=== PATIENT | female | born 1940 | race Caucasian/White ===

== ENCOUNTER 2017-06-08 11:31 | Inpatient (IN) | payer OTHER ==
[~2017-06-08] VITALS: Ht 144.8 cm; Wt 47.0 kg
[~2017-06-08 11:31] MED LIST: ACT30 PO; CALCIUM600 M3 PO; CARVEDILOL25 M1 PO; COUMADIN4 MG PO; DEC150 PO; ESTRACE0.5 MG PO; ESTRADIOL0.5 MG PO; GABAPENTIN300 M3 PO; GLIPIZIDE10 MG PO; GLUCOTROL10 MG PO; LASIX20 MG PO; LEVOTHYROXIN0.075 M2 PO; LEVOTHYROXINE0.1 M2 PO; LOVASTATIN40 MG PO; METFORMIN HCL1000 MG PO; METFORMIN1000 M1 PO; MIRTAZAPINE15 M2 PO; NEURONTIN100 MG PO; PANTOPRAZOLE SO40 M1 PO; PIOGLITAZONE45 M1 PO; SOD1 PO; SODIUM CHLORIDE PO; TRE400 PO; TYLENOL EXTRA500 M2 PO; WARFARIN4 M1 PO
[2017-06-08] MEDS ORDERED: B-12 KIT1000 MCG/1 IJ (11:51)
[2017-06-08] MEDS ORDERED: NEU300 PO (11:52)
[2017-06-08] MEDS ORDERED: MIRTAZAPINE15 M2 PO (11:52)
[2017-06-08] MEDS ORDERED: LANTUS SOLOS100 U/M1 SQ (11:53)
[2017-06-08] MEDS ORDERED: IRON90 MG PO (11:54)
[2017-06-08] MEDS ORDERED: PHOSLO667 MG PO (11:54)
[2017-06-08 12:21] LABS: BASOPHIL % 0.5 % (0-2); PLATELET COUNT 279 x10^3mcL (130-400)
[2017-06-08 12:25] LABS: RED CELL DISTRIBUTION WIDTH 15.1 % (11.5-14.5)
[2017-06-08] MEDS ORDERED: CARVEDILOL12.5 M1 PO (12:36)
[2017-06-08] MEDS ORDERED: COUMADIN2 MG PO (12:36)
[2017-06-08 12:37] LABS: CALCIUM 8.2 mg/dL (8.5-10.1); CARBON DIOXIDE 24.8 mmol/L (21-32); CHLORIDE SERUM 100 mmol/L (98-107); CREATININE SERUM 0.9 mg/dL (0.6-1.0); GLUCOSE SERUM 270 mg/dL (74-106); SODIUM SERUM 131 mmol/L (136-145)
[2017-06-08 12:42] LABS: ALBUMIN 3.2 g/dL (3.4-5.0); ALKALINE PHOSPHATASE 209 U/L (46-116); ALT/SGPT 44 U/L (14-59); AMYLASE 59 U/L (25-115); AST/SGOT 48 U/L (15-37); BILIRUBIN TOTAL 0.21 mg/dL (0.20-1.00); CHOLESTEROL 151 mg/dL (<200); HDL CHOLESTEROL 42 mg/dL (40-60); LIPASE 77 IU/L (73-393); MAGNESIUM 1.7 mg/dL (1.8-2.4); TOTAL PROTEIN, SERUM 6.8 g/dL (6.4-8.2)
[2017-06-08 13:15] VITALS: BP 127/76
[2017-06-09 04:09] LABS: AMPHETAMINE QUAL UR NONE DETECTED (NEG <=1000)
[2017-06-09 04:20] LABS: microscopic required? YES; urine erythrocyte 3+ (NEGATIVE)
[2017-06-09 06:08] VITALS: BP 141/76
[2017-06-09 07:42] LABS: BASOPHIL % 0.4 % (0-2); PLATELET COUNT 272 x10^3mcL (130-400)
[2017-06-09 07:43] LABS: RED CELL DISTRIBUTION WIDTH 14.7 % (11.5-14.5)
[2017-06-09 08:01] LABS: CALCIUM 8.3 mg/dL (8.5-10.1); CARBON DIOXIDE 23.6 mmol/L (21-32); CHLORIDE SERUM 102 mmol/L (98-107); CREATININE SERUM 0.8 mg/dL (0.6-1.0); GLUCOSE SERUM 214 mg/dL (74-106); MAGNESIUM 1.7 mg/dL (1.8-2.4); PHOSPHOROUS 3.1 mg/dL (2.5-4.9); POTASSIUM SERUM 4.6 mmol/L (3.5-5.1); SODIUM SERUM 133 mmol/L (136-145)
[2017-06-09 09:20] VITALS: BP 122/72
[2017-06-09 14:27] LABS: FREE T4 1.35 ng/dL (0.76-1.46); FREE THYROXINE INDEX 3.9 ug/dL (1.4-4.5); T4(THYROXINE) 10.8 ug/dL (4.7-13.3)
[2017-06-09 16:09] LABS: T3 TOTAL 0.81 ng/mL
[2017-06-09 17:29] VITALS: BP 83/62
[2017-06-09 21:50] VITALS: BP 104/66
[2017-06-10] VITALS (8 sets, daily range): BP systolic 97–141; BP diastolic 50–79
[2017-06-10 07:15] LABS: BASOPHIL % 0.5 % (0-2); PLATELET COUNT 249 x10^3mcL (130-400)
[2017-06-10 07:23] LABS: RED CELL DISTRIBUTION WIDTH 14.9 % (11.5-14.5)
[2017-06-10 08:00] LABS: CALCIUM 8.3 mg/dL (8.5-10.1); CARBON DIOXIDE 24.4 mmol/L (21-32); CHLORIDE SERUM 103 mmol/L (98-107); CREATININE SERUM 0.7 mg/dL (0.6-1.0); GLUCOSE SERUM 216 mg/dL (74-106); MAGNESIUM 2.2 mg/dL (1.8-2.4); PHOSPHOROUS 2.8 mg/dL (2.5-4.9); SODIUM SERUM 131 mmol/L (136-145)
[2017-06-11 05:36] VITALS: BP 132/61
[2017-06-11 09:30] VITALS: BP 156/70
[2017-06-11 16:50] VITALS: BP 163/84
[2017-06-11 21:51] VITALS: BP 144/78
[2017-06-12 05:17] VITALS: BP 125/77
[2017-06-12 06:00] LABS: BASOPHIL % 0.6 % (0-2); PLATELET COUNT 263 x10^3mcL (130-400)
[2017-06-12 06:14] LABS: CALCIUM 8.6 mg/dL (8.5-10.1); CARBON DIOXIDE 23.7 mmol/L (21-32); CHLORIDE SERUM 102 mmol/L (98-107); CREATININE SERUM 0.8 mg/dL (0.6-1.0); GLUCOSE SERUM 321 mg/dL (74-106); MAGNESIUM 1.7 mg/dL (1.8-2.4); PHOSPHOROUS 2.8 mg/dL (2.5-4.9); POTASSIUM SERUM 5.1 mmol/L (3.5-5.1); SODIUM SERUM 133 mmol/L (136-145)
[2017-06-12 06:26] VITALS: BP 129/70
[2017-06-12 06:36] LABS: RED CELL DISTRIBUTION WIDTH 14.8 % (11.5-14.5)
[2017-06-12 07:32] VITALS: BP 135/81
[2017-06-12 10:00] VITALS: BP 122/76
[2017-06-12] MEDS ORDERED: CARVEDILOL12.5 M1 PO (16:53)
[2017-06-12] MEDS ORDERED: COUMADIN1 MG PO (16:57)
[2017-06-12 17:22] VITALS: BP 122/76
== END 2017-06-12 19:00 | disposition home or self-care (01) | DRG 291 ==
LOC: ED 11:31 → DU 12:21 → MU 06-10 16:20 → DU 06-10 16:56
PROVIDERS: Emergency Medicine; Family Medicine; ADMIT Family Medicine
DX: I50.43 Acute on chronic combined systolic (congestive) and diastolic (congestive) heart failure (principal); N17.0 Acute kidney failure with tubular necrosis; I47.2 Ventricular tachycardia; E44.0 Moderate protein-calorie malnutrition; E87.1 Hypo-osmolality and hyponatremia; I48.2 Chronic atrial fibrillation; M06.9 Rheumatoid arthritis, unspecified; Z95.0 Presence of cardiac pacemaker; Z79.01 Long term (current) use of anticoagulants; E11.51 Type 2 diabetes mellitus with diabetic peripheral angiopathy without gangrene; E11.65 Type 2 diabetes mellitus with hyperglycemia; E02 Subclinical iodine-deficiency hypothyroidism; E83.42 Hypomagnesemia; F32.9 Major depressive disorder, single episode, unspecified; D64.9 Anemia, unspecified; M62.50 Muscle wasting and atrophy, not elsewhere classified, unspecified site; M81.0 Age-related osteoporosis without current pathological fracture; Z68.22 Body mass index [BMI] 22.0-22.9, adult; Z79.84 Long term (current) use of oral hypoglycemic drugs
CPT/HCPCS: 82962; 83880; 84439; A9500; J1940; J2785; J3475; J3490; J7040; J7042; Q0092

== ENCOUNTER 2018-07-05 06:09 | Inpatient (IN) | payer OTHER ==
[~2018-07-05] VITALS: Ht 142.2 cm; Wt 46.3 kg
[~2018-07-05 06:09] MED LIST changes: +B-12 KIT1000 MCG/1 IJ; +CARVEDILOL12.5 M1 PO; +COUMADIN1 MG PO; +COUMADIN2 MG PO; +IRON90 MG PO; +LANTUS SOLOS100 U/M1 SQ; +NEU300 PO; +PHOSLO667 MG PO
[2018-07-05 06:18] VITALS: Ht 142.2 cm; Wt 46.3 kg
[2018-07-05 06:47] LABS: PLATELET COUNT 204 x10^3mcL (130-400)
[2018-07-05 07:06] LABS: CALCIUM 8.2 mg/dL (8.5-10.1); CARBON DIOXIDE 26.1 mmol/L (21-32); CHLORIDE SERUM 106 mmol/L (98-107); CREATININE SERUM 0.8 mg/dL (0.6-1.0); GLUCOSE SERUM 142 mg/dL (74-106); POTASSIUM SERUM 3.8 mmol/L (3.5-5.1); SODIUM SERUM 140 mmol/L (136-145)
[2018-07-05 07:10] LABS: ALKALINE PHOSPHATASE 118 U/L (46-116); ALT/SGPT 41 U/L (14-59); AST/SGOT 24 U/L (15-37); BILIRUBIN TOTAL 0.3 mg/dL (0.20-1.00); HDL CHOLESTEROL 39 mg/dL (40-60); MAGNESIUM 1.8 mg/dL (1.8-2.4); RED CELL DISTRIBUTION WIDTH 14.7 % (11.5-14.5); TOTAL PROTEIN, SERUM 6.4 g/dL (6.4-8.2)
[2018-07-05 07:11] LABS: ALBUMIN 3.2 g/dL (3.4-5.0); CHOLESTEROL 99 mg/dL (<200)
[2018-07-05 07:15] LABS: microscopic required? NO
[2018-07-05 07:43] LABS: urine erythrocyte NEGATIVE (NEGATIVE)
[2018-07-05] MEDS ORDERED: LANTUS SOLOS100 U/M1 SC (09:40)
[2018-07-05] MEDS ORDERED: ESTROVEN MAXIMU (09:40)
[2018-07-05] MEDS ORDERED: LIPI20 PO (09:41)
[2018-07-05 10:57] VITALS: BP 152/73
[2018-07-05 13:23] VITALS: BP 118/66
[2018-07-05 17:24] VITALS: BP 132/68
[2018-07-05 20:45] VITALS: BP 152/68
[2018-07-06 05:28] VITALS: BP 135/66
[2018-07-06 08:04] VITALS: BP 108/72
[2018-07-06 11:24] VITALS: BP 108/72
== END 2018-07-06 12:20 | disposition home or self-care (01) | DRG 149 ==
LOC: ED 06:09 → DU 09:05
PROVIDERS: Emergency Medicine
DX: H81.10 Benign paroxysmal vertigo, unspecified ear (principal); I48.2 Chronic atrial fibrillation; E11.9 Type 2 diabetes mellitus without complications; E86.0 Dehydration; I48.0 Paroxysmal atrial fibrillation; E03.9 Hypothyroidism, unspecified; M06.9 Rheumatoid arthritis, unspecified; Z95.0 Presence of cardiac pacemaker; Z79.01 Long term (current) use of anticoagulants; Z86.73 Personal history of transient ischemic attack (TIA), and cerebral infarction without residual deficits; Z79.84 Long term (current) use of oral hypoglycemic drugs
CPT/HCPCS: 82962; J1815; J8597; Q0092

== ENCOUNTER 2019-11-08 16:35 | Observation (INO) | payer OTHER ==
[~2019-11-08] VITALS: Ht 144.8 cm; Wt 45.4 kg
[~2019-11-08 16:35] MED LIST changes: +ESTROVEN MAXIMU; +LANTUS SOLOS100 U/M1 SC; +LIPI20 PO
[2019-11-08 16:52] VITALS: Ht 144.8 cm; Wt 45.4 kg
--- NOTE | 2019-11-08 17:30 | NUR ---
PT PRESENTS VIA POV FOR FURTHER EVAL OF DIZZINESS AND NOW NOTED HIGH AT 458; PT HAS PMHX OF PACEMAKER,AFIB,CVA; PT HAS GOOD SPEECH AND IS A/O X 3, ANSWERS QUESTIONS APPROPRIATELY; DENIES ANY CHANGE IN MENTATION; PT SEEN BY PROVIDER; ORDERS REC'D
[2019-11-08 17:44] LABS: BASOPHIL % 0.2 % (0-2); PLATELET COUNT 212 x10^3mcL (130-400); RED CELL DISTRIBUTION WIDTH 15.1 % (11.5-14.5)
--- NOTE | 2019-11-08 18:35 | NUR ---
PT RESTING WELL, NO ADR FROM MEDS GIVEN; REMAINS WAITING ON URINE FOR FURTHER TESTING; NO C/O INCREASE IN DIZZINESS OR N/V; YUSEF FLUIDS WELL
--- NOTE | 2019-11-08 19:20 | NUR ---
PT IS AWAKE, AAOX4, RESP E/U, NAD NOTED, SPEAKING IN FULL CLEAR SENTENCES.
--- NOTE | 2019-11-08 19:25 | NUR ---
PT ASSISTED TO BEDSIDE COMMODE WITHOUT INCIDENT.
[2019-11-08 19:52] LABS: microscopic required? YES; urine erythrocyte 2+ (NEGATIVE)
[2019-11-08 19:53] LABS: CARBON DIOXIDE 23.7 mmol/L (21-32); CHLORIDE SERUM 100 mmol/L (98-107); CREATININE SERUM 1.3 mg/dL (0.6-1.0); GLUCOSE SERUM 449 mg/dL (74-106); POTASSIUM SERUM 4.2 mmol/L (3.5-5.1); SODIUM SERUM 137 mmol/L (136-145)
[2019-11-08 20:01] LABS: ALKALINE PHOSPHATASE 122 U/L (46-116); ALT/SGPT 45 U/L (14-59); AST/SGOT 46 U/L (15-37); BILIRUBIN TOTAL 0.38 mg/dL (0.20-1.00); TOTAL PROTEIN, SERUM 7.6 g/dL (6.4-8.2)
[2019-11-08] MEDS ORDERED: CARVEDILOL ER40 MG PO (20:05)
[2019-11-08] MEDS ORDERED: COU2 PO (20:06)
[2019-11-08] MEDS ORDERED: ATORVASTATIN CA20 M1 PO (20:06)
[2019-11-08] MEDS ORDERED: LASIX20 MG PO (20:06)
[2019-11-08] MEDS ORDERED: LANTUS SOLOS100 U/M1 SC (20:06)
[2019-11-08] MEDS ORDERED: TIROSINT25 MC1 PO (20:07)
[2019-11-08] MEDS ORDERED: HORIZANT300 MG PO (20:07)
[2019-11-08] MEDS ORDERED: METFORMIN500 M1 PO (20:07)
[2019-11-08] MEDS ORDERED: MIRTAZAPINE7.5 M1 PO (20:08)
[2019-11-08] MEDS ORDERED: SOD1 PO (20:08)
--- NOTE | 2019-11-08 20:24 | NUR ---
PT STATES "I'M NOT ALLERGIC TO LASIX, I TAKE LASIX AT HOME." PT REQUESTING FOR LASIX TO BE REMOVED FROM HER ALLERGIES.
--- NOTE | 2019-11-08 20:32 | NUR ---
PT MEDICATED PER MD ORDER. PT VERBALIZED UNDERSTANDING OF MEDICATION PRIOR TO ADMINISTRATION. PT IS AWAKE, AAOX4, RESP E/U, NAD NOTED, CALL LIGHTIN REACH.
--- NOTE | 2019-11-08 21:06 | NUR ---
ATTEMPTED TO CALL REPORT TO MATTHEW, TOLD TO "HOLD ON". WILL TRY AGAIN.
--- NOTE | 2019-11-08 21:11 | NUR ---
REPORT CALLED TO UBNNY CASTRO TO ASSUME CARE FOR PT.
[2019-11-08 22:02] VITALS: BP 148/62
--- NOTE | 2019-11-08 22:13 | NUR ---
RECEIVED PT FROM ER, PT ADMIT FOR DM OUT OF CONTROLLED, CHF, PT IS A/O X4, VERBAL RESPONSIVE. LUNG SOUND CLEAR YVONNE, NO COUGH, NO SOB. NO FACIAL DROOP NOTED. PT IS ON TELE 8, 100% PACED. THERE IS PACE MAKER AT LEFT UPPER CHEST, DENY ANY CHEST PAIN OR DISCOMFORT, BOWEL SOUND PRESENT ALL 4 QUADRANTS, NO DISTENTION, NO TENDER. PEDAL PULSE PRESENT BOTH FEET, NO EDEMA, PT IS ABLE TO AMBULATE WITH ASSIST, ALL 4 EXTREMITIS ARE EQUAL STRAIGHT. NO DEFICIT NOTED. IV AT LEFT AC, NO LEAKING, NO INFILTRATION. ALL ADLS ASSIST, ALL NEED MET, CALL LIGHT IN REACH, WILL CONTINUE TO MONITOR.
--- NOTE | 2019-11-08 23:00 | NUR ---
PHONED DR BRANDON MELGAR CALL EXCHANGE TO OBTAIN ORDERS. WILL WAIT FOR CALL BACK.
--- NOTE | 2019-11-08 23:20 | NUR ---
SPOKE TO DR BRANDON MELGAR IN REGARDS TO ADMISSION ORDERS. RECEIVED ORDERS TO PUT PATIENT ON LOW SLIDING SCALE WITH REGULAR INSULIN COVERAGE. ALSO RECEIVED ORDERS TO RESUME HER HOME MEDICATIONS, ONLY ADJUSTED WAS THE ADDITION OF LASIX 20MG IVP QDAILY. INQUIRED IN REGARDS TO CODE STATUS, PER DR. BRANDON MELGAR, HE HAS NOT SPOKEN TO THE PATIENT IN REGARDS TO THE CODE STATUS AND WILL LEAVE IT TO DR GUZMAN FOR ENTERING. ALL QUESTIONS AND CONCERNS ADDRESSED, CALL LIGHT WITHIN REACH, BED IN LOWEST POSITION, WILL CONTINUE TO MONITOR.
--- NOTE | 2019-11-09 05:05 | NUR ---
PT RESTED IN INTERVALS DURING SHIFT, NO ACUTE CHNAGES OCCURRING OVERNIGHT. PT REMAINS AOX4, DENIES HENAO/DIZZINESS. PT REPORTS FEELING MUCH BETTER THAN BEFORE, STATES SHE KNOWS WHY HER SUGARS WERE SO HIGH (DUE TO THE STERIOD SHE WAS PRESCRIBED). IV SITE REMAINS PATENT TO THE LAC, NO REDNESS, SWELLING OR PAIN NOTED. ALL COMFORT AND SAFETY MEASURES PROVIDED FOR, CALL LIGHT WITHIN REACH, BED IN LOWEST POSITION, WILL CONTINUE TO MONITOR.
[2019-11-09 05:10] VITALS: BP 134/83
--- NOTE | 2019-11-09 07:00 | NUR ---
PT RECIEVED RESTING IN BED WIOTH NO C/O PAIN OR DISTRESS. A/OX4 WITH NO HENAO OR DIZZINESS. TELE#8 CONNECTED TO PT AND SHE DENIES ANY CP OR PRESSURE. WARFARIN PENDING UNTIL INR IS ORDERED, MD MADE AWARE. LUNGS CTAB, NO SOB NOTED. LAC IV CDI AND PATENT. SAFETY PRECAUTIONS IN PLACE, CALL LIGHT WITHIN REACH, WILL MONITOR.
[2019-11-09 07:06] LABS: BASOPHIL % 0.2 % (0-2); PLATELET COUNT 191 x10^3mcL (130-400)
[2019-11-09 08:01] LABS: CALCIUM 8.6 mg/dL (8.5-10.1); CARBON DIOXIDE 28.7 mmol/L (21-32); CHLORIDE SERUM 106 mmol/L (98-107); CREATININE SERUM 0.9 mg/dL (0.6-1.0); GLUCOSE SERUM 148 mg/dL (74-106); POTASSIUM SERUM 3.1 mmol/L (3.5-5.1); SODIUM SERUM 144 mmol/L (136-145)
[2019-11-09 08:02] LABS: MAGNESIUM 1.8 mg/dL (1.8-2.4); PHOSPHOROUS 2.6 mg/dL (2.5-4.9)
[2019-11-09 08:20] VITALS: BP 140/71
--- NOTE | 2019-11-09 13:00 | NUR ---
RECIEVED NEW VERBAL ORDER FROM DR GUZMAN FOR POTASSIUM 40 MEQ PO ONCE NOW, WILL CARRY OUT.
[2019-11-09 13:25] VITALS: BP 143/77
[2019-11-09 14:33] VITALS: BP 143/77
--- NOTE | 2019-11-09 16:08 | NUR ---
PT STABLE TO DISCHARGE PER MD ORDER. VS WNL AND NO DISTRESS NOTED.ALL DISCHARGE INSTRUCTIONS, EDUCATION, AND PRESCRIPTIONS GIVEN TO PT AND DAUGHTER, BOTH VERBALIZE UNDERSTANDING. IV REMOVED WITH CATHETER INTACT, NO REDNESS OR INFLAMMATION NOTED TO SITE. ALL SKIN CDI. ID BANDS REMOVED FROM PT ARM. PT ESCORTED DOWN TO LOBBY VIA WC BY WOOD CARVER HAND. DAUGHTER AT SIDE AND ALL PERSONAL BELONGINGS IN HAND.
== END 2019-11-09 16:17 | disposition home or self-care (01) ==
LOC: ED 16:35 → DU 20:30
PROVIDERS: Emergency Medicine; Internal Medicine; ADMIT Internal Medicine Pulmonary Disease
DX: R42 Dizziness and giddiness (principal); R51 Headache; I10 Essential (primary) hypertension; E78.5 Hyperlipidemia, unspecified; I48.0 Paroxysmal atrial fibrillation; E11.42 Type 2 diabetes mellitus with diabetic polyneuropathy; E03.9 Hypothyroidism, unspecified; E11.65 Type 2 diabetes mellitus with hyperglycemia; E87.6 Hypokalemia; T78.40XA Allergy, unspecified, initial encounter; X58.XXXA Exposure to other specified factors, initial encounter
CPT/HCPCS: 82962; 83880; 87804; G0378; J1200; J1815; J1940; J2765; Q0092